=== PATIENT | male | born 1950 | race African-American/Black ===

== ENCOUNTER 2023-06-30 15:17 | Inpatient (IN) | payer OTHER, MEDICAID, MEDICARE ==
[~2023-06-30] VITALS: Ht 177.8 cm; Wt 79.8 kg
[2023-06-30] MEDS ORDERED: ACETAMINOPHEN 325MG TABLET PO STA (17:38)
[2023-06-30 20:15] LABS: HEMATOCRIT. 38.3 % (42.0-52.0); HEMOGLOBIN. 12.4 g/dL (14.0-18.0); MEAN CORPUSCULAR HEMOGLOBIN 30.9 pg (28.0-32.0); MEAN CORPUSCULAR HGB CONC 32.5 g/dL (31.0-37.0); MEAN CORPUSCULAR VOLUME 95.3 fL (80.0-94.0); MEAN PLATELET VOLUME 7.7 fl (7.4-10.4); PLATELET 220 x1000/uL (130-400); RED BLOOD CELL COUNT 4.02 mill/uL (4.7-6.1); RED CELL DISTRIBUTION WIDTH 14.4 % (11.6-14.6); WHITE BLOOD COUNT 5.4 x1000/uL (4.5-11.0)
[2023-06-30 20:16] LABS: DIFFERENTIAL COMMENT 1
[2023-06-30 20:25] LABS: INR 1.3; PROTHROMBIN TIME 13.6 sec (9.6-11.0)
[2023-06-30 20:28] LABS: ALANINE AMINOTRANSFERASE 17 IU/L (10-49); ALBUMIN 4.4 g/dL (3.2-4.8); ASPARTATE AMINOTRANSFERASE 34 IU/L (<34); BILIRUBIN TOTAL 0.7 mg/dL (0.1-1.0); CALCIUM 9.3 mg/dL (8.7-10.4); CARBON DIOXIDE 26 mEq/L (21-32); CHLORIDE 103 mEq/L (98-107); CREATININE 0.9 mg/dL (0.6-1.3); GLUCOSE 78 mg/dL (70-105); PLATELET ESTIMATE NORMAL; PROTEIN TOTAL 8.2 g/dL (6.0-8.3); SODIUM 140 mEq/L (136-145); UREA NITROGEN BLOOD 20 mg/dL (9-23)
[2023-06-30 20:31] LABS: TROPONIN I HIGH SENSITIVITY 120 ng/L (3.0-53)
[2023-06-30] MEDS ORDERED: ASPIRIN 81MG TABLET PO ONE (20:45)
[2023-06-30] MEDS ORDERED: LORAZEPAM 0.5MG TABLET PO ONE (23:30)
[2023-07-01 01:51] LABS: CLARITY URINE CLEAR (CLEAR); COLOR URINE YELLOW (YELLOW); GLUCOSE URINE NEGATIVE (NEGATIVE); KETONES URINE NEGATIVE (NEGATIVE); LEUKOCYTE ESTERASE URINE NEGATIVE (NEGATIVE); NITRITE URINE NEGATIVE (NEGATIVE); OCCULT BLOOD URINE 3+ (NEGATIVE); PH URINE 6.5 (4.5-8.0); PROTEIN URINE NEGATIVE (NEGATIVE); SPECIFIC GRAVITY URINE 1.013 (1.005-1.030)
[2023-07-01 02:22] LABS: SQUAMOUS EPITHELIAL CELL URINE NONE SEEN /lpf (RARE/1+); WBC URINE NONE SEEN /hpf (0-2)
[2023-07-01 02:23] LABS: BACTERIA URINE NONE SEEN
[2023-07-01 04:48] LABS: TROPONIN I HIGH SENSITIVITY 102 ng/L (3.0-53)
[2023-07-01 08:00] VITALS: BP 143/87; PULSE 76; RESP 20; TEMP 97
[2023-07-01] MEDS ORDERED: GABA-532 PO (09:31)
[2023-07-01] MEDS ORDERED: CLONIDINE 0.1MG TABLET PO PRN (11:45)
[2023-07-01] MEDS ORDERED: ACETAMINOPHEN 325MG TABLET PO PRN (11:45)
[2023-07-01] MEDS ORDERED: ONDANSETRON HCL 4MG/2ML INJ IV PRN (11:45)
[2023-07-01] MEDS ORDERED: IPRATROPIUM/ALBUTEROL 0.5-3(2.5)MG/3ML NEB HHN PRN (11:45)
[2023-07-01] MEDS ORDERED: DOCUSATE SODIUM 100MG CAPSULE PO PRN (11:45)
[2023-07-01 12:00] VITALS: BP 125/65; PULSE 75; RESP 18; TEMP 98
[2023-07-01 12:44] LABS: BG BASE EXCESS 2.8 mmol/L (-2.0-2.0); BG CARBOXYHEMOGLOBIN 0.6 % (0.5-1.5); BG DEOXYHEMOGLOBIN 7.5 % (0.0-5.0); BG FRACTION INSPIRED OXYGEN 21; BG HCO3 ACT 26.6 mmol/L (22.0-26.0); BG OXYGEN SATURATION 92.5 % (92.0-98.5); BG OXYHEMOGLOBIN 91.9 % (94.0-97.0); BG PCO2 37.9 mmHg (35.0-45.0); BG PH 7.464 (7.350-7.450); BG PO2 65.3 mmHg (75.0-100.0); BG SAMPLE SITE RIGHT RADIAL; BG TOTAL HEMOGLOBIN 13.1 g/dL (12.0-18.0); BG VENT MODE ROOM AIR
[2023-07-01] MEDS: AMLODIPINE 10MG TABLET PO SCH (12:52)
[2023-07-01] MEDS: ASPIRIN 81MG TABLET PO SCH (12:52)
[2023-07-01] MEDS: NITROGLYCERIN OINT 1GM/INCH UDPKT TD SCH ×2 (13:26→22:20)
[2023-07-01 16:00] VITALS: BP 130/74; PULSE 74; RESP 18; TEMP 97.9
[2023-07-01 16:34] LABS: HEMOGLOBIN. 11.9 g/dL (14.0-18.0); MEAN CORPUSCULAR HGB CONC 33.1 g/dL (31.0-37.0); MEAN CORPUSCULAR VOLUME 93.7 fL (80.0-94.0); MEAN PLATELET VOLUME 8.4 fl (7.4-10.4); PLATELET 201 x1000/uL (130-400); RED BLOOD CELL COUNT 3.85 mill/uL (4.7-6.1); RED CELL DISTRIBUTION WIDTH 14.5 % (11.6-14.6); WHITE BLOOD COUNT 3.7 x1000/uL (4.5-11.0)
[2023-07-01 16:40] LABS: DIFFERENTIAL COMMENT 1
[2023-07-01 16:46] LABS: *AMPHETAMINES SCREEN URINE NEGATIVE (NEGATIVE); *BARBITURATES SCREEN URINE NEGATIVE (NEGATIVE); *BENZODIAZEPINES SCREEN URINE NEGATIVE (NEGATIVE); *COCAINE SCREEN URINE PRESUMPTIVE POSITIVE (NEGATIVE); CANNABINOID URINE SCREEN NEGATIVE (NEGATIVE); ECSTASY MDMA SCREEN URINE NEGATIVE (NEGATIVE); METHADONE URINE SCREEN Neg (NEGATIVE); OPIATES URINE SCREEN NEGATIVE (NEGATIVE); PHENCYCLIDINE URINE SCREEN NEGATIVE (NEGATIVE)
[2023-07-01 16:53] LABS: CREATINE KINASE MB FRACTION 4.5 ng/mL (0.5-3.6)
[2023-07-01 17:09] LABS: ALANINE AMINOTRANSFERASE 15 IU/L (10-49); ALBUMIN 3.7 g/dL (3.2-4.8); ASPARTATE AMINOTRANSFERASE 26 IU/L (<34); BILIRUBIN TOTAL 0.4 mg/dL (0.1-1.0); CALCIUM 8.8 mg/dL (8.7-10.4); CARBON DIOXIDE 26 mEq/L (21-32); CHLORIDE 102 mEq/L (98-107); CHOLESTEROL 181 mg/dL (<200); CREATININE 0.9 mg/dL (0.6-1.3); FERRITIN 18 ng/mL (22-322); FOLIC ACID (FOLATE) SERUM 19.47 ng/mL (>5.38); GLUCOSE 88 mg/dL (70-105); HDL CHOLESTEROL 55 mg/dL (>55); IRON 47 ug/dL (65-175); LDL CHOLESTEROL 98 mg/dL (5-100); POTASSIUM 4.4 mEq/L (3.5-5.1); PROTEIN TOTAL 6.6 g/dL (6.0-8.3); SODIUM 137 mEq/L (136-145); T4 FREE 0.99 ng/dL (0.89-1.76); TOTAL IRON BINDING CAPACITY 279 ug/dl (250-425); TRIGLYCERIDE 149 mg/dL (0-150); TRIOIODOTHYRONINE TOTAL 0.58 ng/ml (0.60-1.81); UREA NITROGEN BLOOD 22 mg/dL (9-23); VITAMIN B12 SERUM 516 pg/mL (211-911)
[2023-07-01 17:20] LABS: PLATELET ESTIMATE NORMAL
[2023-07-01 20:00] VITALS: BP 113/71; PULSE 72; RESP 18; TEMP 97.4
[2023-07-01] MEDS: ACETAMINOPHEN 325MG TABLET PO PRN (22:21)
[2023-07-02] VITALS: BP 98/58; PULSE 62; RESP 18; TEMP 98.3
[2023-07-02 04:00] VITALS: BP 112/68; PULSE 58; RESP 18; TEMP 97.3
[2023-07-02] MEDS: NITROGLYCERIN OINT 1GM/INCH UDPKT TD SCH ×2 (06:16→14:47)
[2023-07-02 08:00] VITALS: BP 117/60; PULSE 61; RESP 18; TEMP 96.7
[2023-07-02 08:37] LABS: HEMATOCRIT. 39.9 % (42.0-52.0); HEMOGLOBIN. 13.1 g/dL (14.0-18.0); MEAN CORPUSCULAR HEMOGLOBIN 31.2 pg (28.0-32.0); MEAN CORPUSCULAR HGB CONC 32.7 g/dL (31.0-37.0); MEAN CORPUSCULAR VOLUME 95.3 fL (80.0-94.0); MEAN PLATELET VOLUME 7.9 fl (7.4-10.4); PLATELET 195 x1000/uL (130-400); RED BLOOD CELL COUNT 4.19 mill/uL (4.7-6.1); RED CELL DISTRIBUTION WIDTH 14.3 % (11.6-14.6)
[2023-07-02] MEDS: AMLODIPINE 10MG TABLET PO SCH (08:37)
[2023-07-02] MEDS: ASPIRIN 81MG TABLET PO SCH (08:37)
[2023-07-02 08:50] LABS: DIFFERENTIAL COMMENT 1
[2023-07-02 08:59] LABS: CALCIUM 8.6 mg/dL (8.7-10.4); CARBON DIOXIDE 28 mEq/L (21-32); CHLORIDE 103 mEq/L (98-107); CREATININE 0.9 mg/dL (0.6-1.3); GLUCOSE 75 mg/dL (70-105); POTASSIUM 4.2 mEq/L (3.5-5.1); SODIUM 137 mEq/L (136-145); UREA NITROGEN BLOOD 15 mg/dL (9-23)
[2023-07-02 12:00] VITALS: BP 129/78; PULSE 60; RESP 18; TEMP 96.9
[2023-07-02] MEDS: ACETAMINOPHEN 325MG TABLET PO PRN (14:52)
[2023-07-02 15:11] VITALS: BP 129/78; PULSE 60; TEMP 96.9; O2SAT 100
[2023-07-02 16:00] VITALS: BP 118/68; PULSE 78; RESP 20; TEMP 97.1
[2023-07-02 21:34] LABS: PLATELET ESTIMATE NORMAL
== END 2023-07-02 19:15 | disposition home or self-care (01) | DRG 178 ==
LOC: ER 15:17 → MICUSO 23:37 → EDBEDREQ 23:49 → EDBEDREQTM 23:49 → 7WST 07-01 07:40
PROVIDERS: ADMIT Internal Medicine; ATTEND Internal Medicine
DX: U07.1 COVID-19 (principal); I45.2 Bifascicular block; R07.89 Other chest pain; R06.03 Acute respiratory distress; D64.9 Anemia, unspecified; F14.10 Cocaine abuse, uncomplicated; I10 Essential (primary) hypertension; I48.91 Unspecified atrial fibrillation; R09.02 Hypoxemia; R79.89 Other specified abnormal findings of blood chemistry; Z91.148 Patient's other noncompliance with medication regimen for other reason; Z86.73 Personal history of transient ischemic attack (TIA), and cerebral infarction without residual deficits
CPT/HCPCS: 36415; 36600; 71045; 80048; 80053; 80061; 80305; 81003; 82375; 82550; 82553; 82607; 82728; 82746; 82805; 83540; 83550; 84439; 84443; 84480; 84484; 85025; 85379; 87426; 87804; 93005; 99291

== ENCOUNTER 2023-08-09 02:33 | Inpatient (IN) | payer OTHER, MEDICAID ==
[~2023-08-09] VITALS: Ht 180.3 cm; Wt 68.9 kg
[~2023-08-09 02:33] MED LIST: GABA-532 PO
[2023-08-09 06:24] LABS: BASOPHILS % 0.4 % (0.0-2.0); HEMATOCRIT. 36.8 % (42.0-52.0); HEMOGLOBIN. 12.4 g/dL (14.0-18.0); LYMPHOCYTES % 17.2 % (20.0-50.0); MEAN CORPUSCULAR HEMOGLOBIN 31.1 pg (28.0-32.0); MEAN CORPUSCULAR HGB CONC 33.7 g/dL (31.0-37.0); MEAN CORPUSCULAR VOLUME 92.4 fL (80.0-94.0); MEAN PLATELET VOLUME 7.6 fl (7.4-10.4); MONOCYTES % 8.3 % (2.0-8.0); NEUTROPHILS % 73.1 % (40.0-76.0); PLATELET 242 x1000/uL (130-400); RED BLOOD CELL COUNT 3.99 mill/uL (4.7-6.1); RED CELL DISTRIBUTION WIDTH 14.1 % (11.6-14.6); WHITE BLOOD COUNT 6.5 x1000/uL (4.5-11.0)
[2023-08-09 06:43] LABS: ALANINE AMINOTRANSFERASE 21 IU/L (10-49); ALBUMIN 4.8 g/dL (3.2-4.8); ASPARTATE AMINOTRANSFERASE 36 IU/L (<34); BILIRUBIN TOTAL 1.1 mg/dL (0.1-1.0); CALCIUM 9.3 mg/dL (8.7-10.4); CARBON DIOXIDE 28 mEq/L (21-32); CHLORIDE 104 mEq/L (98-107); GLUCOSE 110 mg/dL (70-105); POTASSIUM 3.8 mEq/L (3.5-5.1); PROTEIN TOTAL 8.1 g/dL (6.0-8.3); SODIUM 137 mEq/L (136-145); UREA NITROGEN BLOOD 18 mg/dL (9-23)
[2023-08-09 08:31] LABS: TROPONIN I HIGH SENSITIVITY 126 ng/L (3.0-53)
[2023-08-09 17:32] VITALS: BP 144/73; PULSE 61; RESP 16; TEMP 98.2
[2023-08-09] MEDS ORDERED: INFLUENZA VACCINE 05/PF 0.5 ML SYRINGE IM ONE (17:45)
[2023-08-09] MEDS: ASPIRIN 81MG TABLET PO SCH (18:39)
[2023-08-09 19:33] LABS: *AMPHETAMINES SCREEN URINE NEGATIVE (NEGATIVE); *BARBITURATES SCREEN URINE NEGATIVE (NEGATIVE); *BENZODIAZEPINES SCREEN URINE NEGATIVE (NEGATIVE); *COCAINE SCREEN URINE PRESUMPTIVE POSITIVE (NEGATIVE); CANNABINOID URINE SCREEN NEGATIVE (NEGATIVE); ECSTASY MDMA SCREEN URINE NEGATIVE (NEGATIVE); METHADONE URINE SCREEN Neg (NEGATIVE); OPIATES URINE SCREEN NEGATIVE (NEGATIVE); PHENCYCLIDINE URINE SCREEN NEGATIVE (NEGATIVE)
[2023-08-09 20:00] VITALS: BP 153/66; PULSE 68; RESP 18; TEMP 99.7
[2023-08-09] MEDS: ATORVASTATIN CALCIUM 20MG TABLET PO SCH (21:30)
[2023-08-09 22:14] VITALS: BP 120/57; PULSE 68; TEMP 99.7; O2SAT 98
== END 2023-08-09 23:05 | disposition short-term general hospital (02) | DRG 311 ==
LOC: ER 02:33 → 5WST 07:28 → EDBEDREQ 07:30 → EDBEDREQTM 07:30 → 7EST 16:42
PROVIDERS: ADMIT Internal Medicine; ATTEND Internal Medicine
DX: I24.9 Acute ischemic heart disease, unspecified (principal); I45.2 Bifascicular block; R53.1 Weakness; I10 Essential (primary) hypertension; D64.9 Anemia, unspecified; F14.90 Cocaine use, unspecified, uncomplicated; R51.9 Headache, unspecified; G62.9 Polyneuropathy, unspecified; F19.90 Other psychoactive substance use, unspecified, uncomplicated; R07.89 Other chest pain; Z85.51 Personal history of malignant neoplasm of bladder
CPT/HCPCS: 36415; 71045; 80053; 80305; 83880; 84484; 85025; 93005; 99285